=== PATIENT | female | born 1995 | race Caucasian/White ===

== ENCOUNTER 2017-12-15 22:57 | Emergency (ER) | payer SELFPAY ==
[2017-12-15] MEDS ORDERED: Ibuprofen 800 MG Tab PO ONE (23:32)
--- NOTE | 2017-12-15 23:32 | EDM.PDOC ---
ED HPI GENERAL MEDICAL PROBLEM - General Chief Complaint: Upper Extremity Injury/Pain Stated Complaint: PT HURT RT RING FINGER Time Seen by Provider: 12/15/17 23:06 - History of Present Illness INITIAL COMMENTS - FREE TEXT/NARRATIVE: HISTORY AND PHYSICAL: History of present illness: The patient is a 22-year-old female who presents after she hit her right fourth digit on the steering wheel earlier today in the wrong way and has pain to the tip of her digit. She has no other hand pain and no proximal wrist or forearm pain and she says the pain from the tip of her right finger is where the injury is and it does shoot up her finger. She has no other complaints and no recent fevers chills nausea vomiting abdominal pain or shortness of breath. She says that she contacted her mother who thought it looked very bruised and that she should come here for evaluation. She is able to move it and she has not taken anything [id number] for the pain Review of systems: As per history of present illness and below otherwise all systems reviewed and negative. Past medical history: As per history of present illness and as reviewed below otherwise noncontributory. Surgical history: As per history of present illness and as reviewed below otherwise noncontributory. Social history: No reported history of drug or alcohol abuse. Family history: As per history of present illness and as reviewed below otherwise noncontributory. Physical exam: General: Well-developed well-nourished mildly overweight female who is nontoxic and vital signs have been reviewed by me. HEENT: Atraumatic, normocephalic,negative for conjunctival pallor or scleral icterus, mucous membranes moist, throat clear, neck supple, nontender, trachea midline. Lungs: Clear to auscultation, breath sounds equal bilaterally, chest nontender. Heart: S1S2, regular rate and rhythm no overt murmurs Abdomen: Soft, nondistended, nontender. NABS Pelvis: Deferred Genitourinary: Deferred. Rectal: Deferred. Extremities: Atraumatic with full range of motion of all extremities with the exception of the right fourth digit. The proximal and middle phalanx are intact and nontender at this digit at the distal phalanx and tuft are swollen ecchymotic and tender but the nail and nailbed are intact. The alignment is normal throughout the finger and the ecchymosis is most intense at the tuft soft tissue but does seem to extend proximally past the DIP flexure. There is no tenderness in the middle phalanx. Capillary Refill is normal. Neurovascular unremarkable. Neuro: Awake, alert, oriented. Cranial nerves II through XII unremarkable. Cerebellum unremarkable. Motor and sensory unremarkable throughout. Exam nonfocal. Diagnostics: X-ray right fourth digit Therapeutics: Motrin ice pack Impression: Right fourth digit injury/contusion Definitive disposition and diagnosis as appropriate pending reevaluation and review of above. Right 4-Ring finger Pain Score (Numeric/FACES): 4 - Related Data Allergies Allergy/AdvReac Type Severity Reaction Status Date / Time No Known Allergies Allergy Verified 12/15/17 23:19 Home Meds: Home Meds . [No Known Home Meds] 12/15/17 [History] Review of Systems - Review of Systems Review Of Systems: ROS reveals no pertinent complaints other than HPI. ED EXAM, GENERAL - Physical Exam Exam: See Below (See dictation) Course - Vital Signs Last Recorded V/S: Last Vital Signs Temp 36.2 C 12/16/17 00:18 Pulse 66 12/16/17 00:18 Resp 17 12/16/17 00:18 BP 112/77 12/16/17 00:18 Pulse Ox 98 12/16/17 00:18 - Orders/Labs/Meds Orders: Active Orders 24 hr Category Date Time Status Fingers Fourth Digit Rt F8 [CR] Stat Exams 12/15/17 23:14 Taken Meds: Medications Discontinued Medications Generic Name Dose Route Start Last Admin Trade Name Freq PRN Reason Stop Dose Admin Ibuprofen 800 mg 12/15/17 23:32 12/16/17 00:16 Motrin PO 12/15/17 23:33 800 mg ONETIME ONE Administration Departure - Departure Time of Disposition: 00:24 Disposition: Home, Self-Care 01 Condition: Good Clinical Impression: Contusion, finger Qualifiers: Encounter type: initial encounter Finger: ring finger Damage to nail status: without damage Laterality: right Qualified Code(s): S60.041A - Contusion of right ring finger without damage to nail, initial encounter - Discharge Information Referrals: PCP,None [Primary Care Provider] - Forms: ED Department Discharge Additional Instructions: The following information is given to patients seen in the emergency department who are being discharged to home. This information is to outline your options for follow-up care. We provide all patients seen in our emergency department with a follow-up referral. The need for follow-up, as well as the timing and circumstances, are variable depending upon the specifics of your emergency department visit. If you don't have a primary care physician on staff, we will provide you with a referral. We always advise you to contact your personal physician following an emergency department visit to inform them of the circumstance of the visit and for follow-up with them and/or the need for any referrals to a consulting specialist. The emergency department will also refer you to a specialist when appropriate. This referral assures that you have the opportunity for followup care with a specialist. All of these measure are taken in an effort to provide you with optimal care, which includes your followup. Under all circumstances we always encourage you to contact your private physician who remains a resource for coordinating your care. When calling for followup care, please make the office aware that this follow-up is from your recent emergency room visit. If for any reason you are refused follow-up, please contact the [facility] emergency department at and ask to speak to the emergency department charge nurse. [facility] clinic-Plastic Surgery and Hand Surgery Professional Building [address] [place] [id number] Use ice to area and try to keep it elevated. Use [id number] ibuprofen/ Motrin or Tylenol for pain. Please call and schedule a follow-up appointment with our hand specialist in the clinic if you choose for follow-up and for further care and evaluation and return to ER as needed and as discussed. Please wear splint until you're followed up in the clinic or for the next 5 days.. - My Orders Last 24 Hours: My Active Orders 12/15/17 23:14 Fingers Fourth Digit Rt F8 [CR] Stat - Assessment/Plan Last 24 Hours: My Active Orders 12/15/17 23:14 Fingers Fourth Digit Rt F8 [CR] Stat
--- NOTE | 2017-12-16 14:08 | CR ---
EXAM DATE: 12/15/17 PATIENT'S AGE: 22 Patient: MEG MORRIS Facility: [place], [place] Site . Site : 1997 Study: XRay Extremity Right 4th Digit [id number]/17/2018 11:35:39 PM Ordering Physician: Sonal Villela Final Report: HISTORY: Jammed 4th finger on steering wheel. Swelling and slight bruising. COMPARISON: None available. FINDINGS: The right 4th finger is examined with PA, lateral, and oblique views. There is no sign of fracture or dislocation. There is mild swelling of the proximal finger. The soft tissues are otherwise normal in appearance without sign of radio- opaque foreign body. No significant degenerative disease is seen. IMPRESSION: NO SIGN OF OSSEOUS INJURY TO THE 4TH FINGER. MILD PROXIMAL 4TH FINGER SWELLING. NO SIGN OF FOREIGN BODY. Dictated by Chris Hendrix MD @ Dec 16 2017 12:17AM (Electronic Signature) Report Signed by Proxy. LEYLA
== END 2017-12-16 00:35 | disposition home or self-care (01) ==
LOC: MW.ED 22:57
DX: S60.041A Contusion of right ring finger without damage to nail, initial encounter (principal); W22.8XXA Striking against or struck by other objects, initial encounter
CPT/HCPCS: 73140; 99283; A9270